=== PATIENT | female | born 1975 | race Caucasian/White ===

== ENCOUNTER 2017-11-04 19:05 | Emergency (ER) | payer MEDICAID ==
[~2017-11-04] VITALS: Ht 160 cm; Wt 70.0 kg
[2017-11-04 19:14] VITALS: BP 142/95; PULSE 83; RESP 20; TEMP 98.1; O2SAT 99
[2017-11-04] MEDS ORDERED: SODIUM CHLORID 0.9% 500 ML INJ 500 ML IV ONE (19:15)
[2017-11-04] MEDS ORDERED: ONDANSETRON HCL 4 MG/2 ML VIAL IV PUSH ONE (19:15)
[2017-11-04] MEDS ORDERED: MORPHINE SULFATE 4 MG/ML INJ IV PUSH ONE (19:15)
[2017-11-04] MEDS ORDERED: SODIUM CHLORIDE 0.9% FLUSH 10 ML FLUSH IVF PRN (19:15)
[2017-11-04] MEDS ORDERED: MORPHINE SULFATE 2 MG/ML INJ IV PUSH ONE ×2 (19:15→20:45)
[2017-11-04 19:18] VITALS: BP_SYST 149; BP_SYST 151; BP_DIAS 119; BP_DIAS 92
[2017-11-04 19:19] VITALS: O2SAT 99
[2017-11-04 19:41] LABS: AUTOMATED NEUTROPHIL # 8.6 TH/MM3 (1.8-7.7); BASOPHIL # 0.1 TH/MM3 (0-0.2); BASOPHIL % 0.7 % (0.0-2.0); HEMATOCRIT 34.8 % (35.0-46.0); HEMOGLOBIN 11.6 GM/DL (11.6-15.3); LYMPH % 17.3 % (9.0-44.0); LYMPHOCYTE # 1.9 TH/MM3 (1.0-4.8); MEAN CELL VOLUME 84.9 FL (80.0-100.0); MEAN CORPUSCULAR HEMOGLOBIN 28.4 PG (27.0-34.0); MEAN CORPUSCULAR HGB CONC 33.4 % (32.0-36.0); MEAN PLATELET VOLUME 9.6 FL (7.0-11.0); MONO % 4.6 % (0.0-8.0); MONOCYTE # 0.5 TH/MM3 (0-0.9); NEUT % 77.4 % (16.0-70.0); PLATELET COUNT 253 TH/MM3 (150-450); WHITE BLOOD COUNT 11.2 TH/MM3 (4.0-11.0)
--- NOTE | 2017-11-04 19:43 | RADRPT ---
EXAM DATE/TIME: 11/04/2017 19:20 [facility] COMPARISON: No previous studies available for comparison. INDICATIONS : Chest pain MEDICAL HISTORY : None. SURGICAL HISTORY : None. ENCOUNTER: Initial ACUITY: 1 day PAIN SCORE: 2/10 LOCATION: chest FINDINGS: A single view of the chest demonstrates the lungs to be symmetrically aerated without evidence of mas s, infiltrate or effusion. The cardiomediastinal contours are unremarkable. Osseous structures are intact. CONCLUSION: The lungs are clear. Darío Morrison MD on November 04, 2017 at 19:41 Board Certified Radiologist. This report was verified electronically.
[2017-11-04 19:52] LABS: INTERNATIONAL NORMALIZED RATIO 1.1 RATIO; PROTHROMBIN TIME - PATIENT 10.7 SEC (9.8-11.6)
[2017-11-04 19:55] LABS: D-DIMER 0.78 MG/L FEU (0.00-0.50)
[2017-11-04 19:56] LABS: ALT (GPT) 17 U/L (10-53)
[2017-11-04 20:04] LABS: ALBUMIN 3.3 GM/DL (3.4-5.0); ALKALINE PHOSPHATASE 182 U/L (45-117); AST (GOT) 20 U/L (15-37); BICARBONATE 25.4 MEQ/L (21.0-32.0); BLOOD UREA NITROGEN 8 MG/DL (7-18); CHLORIDE 102 MEQ/L (98-107); CREATININE 1.09 MG/DL (0.50-1.00); GLOMERULAR FILTRATION RATE 56 ML/MIN (>89); GLUCOSE,RANDOM 97 MG/DL (74-106); LIPASE 134 U/L (73-393); SODIUM (NA) 136 MEQ/L (136-145); TOTAL BILIRUBIN ADULT 0.3 MG/DL (0.2-1.0); TOTAL PROTEIN 8.3 GM/DL (6.4-8.2); TROPONIN I LESS THAN 0.02 NG/ML (0.02-0.05)
[2017-11-04] MEDS ORDERED: METH10TA PO (20:12)
[2017-11-04] MEDS ORDERED: SERO100T PO (20:14)
[2017-11-04] MEDS ORDERED: LEVO125T4 PO (20:14)
--- NOTE | 2017-11-04 20:30 | PD ---
HPI Chief Complaint: Chest Pain Time Seen by Provider: 19:08 Travel History International Travel<30 days: No Contact w/Intl Traveler<30days: No Traveled to known affect area: No History of Present Illness HPI The patient is a 41-year-old female who presents emergency department for chest pain. The patient states she was walking earlier today when she developed substernal to left-sided chest pain. The chest pain was described as tightness, radiating to left shoulder, so sutures shortness of breath and mild nausea. She denied any diaphoresis or vomiting. The patient does have a history of hypertension, had a similar episode of chest pain 6 months ago in [place] and stated she had a walking stress test which was unremarkable. The patient denies any history of pulmonary embolism or DVT, did recently fly to the local area from [place] 2-3 weeks ago. She denies any significant swelling to lower extremities. She does have a history of tobacco use, denies any history of diabetes or previous CAD. Symptoms are moderate, she denies any exertional component or pleuritic component. She does have a history of tobacco use, but denies any acute cough or fever. Symptoms are moderate, there are no current alleviating or exacerbating factors. The patient did receive aspirin and nitroglycerin prior to arrival without any alleviation of the patient's symptoms. PFSH Past Medical History Cardiovascular Problems: Yes (htn ) Diabetes: No ?: Not Past Surgical History Hysterectomy: Yes Social History Tobacco Use: Yes Substance Use: No Allergies-Medications (Allergen,Severity, Reaction): Coded Allergies: Penicillins (Verified Allergy, Unknown, 11/04/17) phenytoin (Verified Allergy, Unknown, 11/04/17) pseudoephedrine (Verified Allergy, Unknown, 11/04/17) Reported Meds & Prescriptions Reported Meds & Active Scripts Active Reported Seroquel (Quetiapine Fumarate) 100 Mg Tab 100 Mg PO BID Levothyroxine (Levothyroxine Sodium) 125 Mcg Tab 125 Mcg PO DAILY Methadone (Methadone HCl) 10 Mg Tab 110 Mg PO DAILY Review of Systems Except as stated in HPI: all other systems reviewed are Neg General / Constitutional: No: Fever, Chills HENT: No: Lightheadedness Cardiovascular: Positive: Chest Pain or Discomfort, No: Diaphoresis, Dyspnea on exertion Gastrointestinal: Positive: Nausea, No: Vomiting, Abdominal Pain Musculoskeletal: No: Edema Neurologic: No: Dizziness Physical Exam Narrative GENERAL: Awake, alert, pleasant 41-year-old female who appears her stated age and is in no acute respiratory distress. She does appear slightly anxious. SKIN: Focused skin assessment warm/dry. HEAD: Atraumatic. Normocephalic. EYES: Pupils equal and round. No scleral icterus. No injection or drainage. ENT: No nasal bleeding or discharge. Mucous membranes pink and moist. NECK: Trachea midline. No JVD. CARDIOVASCULAR: Regular rate and rhythm. No murmur appreciated. Heart rate in the 70s. RESPIRATORY: No accessory muscle use. Clear to auscultation. Breath sounds equal bilaterally. GASTROINTESTINAL: Abdomen soft, non-tender, nondistended. No rebound tenderness. MUSCULOSKELETAL: No obvious deformities. No clubbing. No cyanosis. No edema. NEUROLOGICAL: Awake and alert. No obvious cranial nerve deficits. Motor grossly within normal limits. Normal speech. PSYCHIATRIC: Appropriate mood and affect; insight and judgment normal. Data Data Last Documented VS Vital Signs Date Time Temp Pulse Resp B/P (MAP) Pulse Ox O2 Delivery O2 Flow Rate FiO2 11/04/17 19:19 99 Nasal Cannula 2.00 11/04/17 19:19 11/04/17 19:14 98.1 83 20 Orders Orders Electrocardiogram (11/04/17 19:14) Ckmb (Isoenzyme) Profile (11/04/17 19:14) Complete Blood Count With Diff (11/04/17 19:14) Comprehensive Metabolic Panel (11/04/17 19:14) D-Dimer (11/04/17 19:14) Magnesium (Mg) (11/04/17 19:14) Prothrombin Time / Inr (Pt) (11/04/17 19:14) Act Partial Throm Time (Ptt) (11/04/17 19:14) Troponin I (11/04/17 19:14) Lipase (11/04/17 19:14) Chest, Single Ap (11/04/17 19:14) Ecg Monitoring (11/04/17 19:14) Bilateral Bp Monitoring (11/04/17 19:14) Iv Access Insert/Monitor (11/04/17 19:14) Oximetry (11/04/17 19:14) Oxygen Administration (11/04/17 19:14) Morphine Inj (Morphine Inj) (11/04/17 19:15) Sodium Chloride 0.9% Flush (Ns Flush) (11/04/17 19:15) Sodium Chlorid 0.9% 500 Ml Inj (Ns 500 M (11/04/17 19:15) Ondansetron Inj (Zofran Inj) (11/04/17 19:15) Morphine Inj (Morphine Inj) (11/04/17 19:15) Ct Pulmonary Angiogram (11/04/17 20:03) Morphine Inj (Morphine Inj) (11/04/17 20:45) Troponin I (11/04/17 22:20) Iohexol 350 Inj (Omnipaque 350 Inj) (11/04/17 21:04) Labs Laboratory Tests Test 11/04/17 19:20 11/04/17 22:00 White Blood Count 11.2 TH/MM3 Red Blood Count 4.10 MIL/MM3 Hemoglobin 11.6 GM/DL Hematocrit 34.8 % Mean Corpuscular Volume 84.9 FL Mean Corpuscular Hemoglobin 28.4 PG Mean Corpuscular Hemoglobin Concent 33.4 % Red Cell Distribution Width 16.0 % Platelet Count 253 TH/MM3 Mean Platelet Volume 9.6 FL Neutrophils (%) (Auto) 77.4 % Lymphocytes (%) (Auto) 17.3 % Monocytes (%) (Auto) 4.6 % Eosinophils (%) (Auto) 0.0 % Basophils (%) (Auto) 0.7 % Neutrophils # (Auto) 8.6 TH/MM3 Lymphocytes # (Auto) 1.9 TH/MM3 Monocytes # (Auto) 0.5 TH/MM3 Eosinophils # (Auto) 0.0 TH/MM3 Basophils # (Auto) 0.1 TH/MM3 CBC Comment DIFF FINAL Differential Comment Prothrombin Time 10.7 SEC Prothromb Time International Ratio 1.1 RATIO Activated Partial Thromboplast Time 32.9 SEC D-Dimer Quantitative (PE/DVT) 0.78 MG/L FEU Blood Urea Nitrogen 8 MG/DL Creatinine 1.09 MG/DL Random Glucose 97 MG/DL Total Protein 8.3 GM/DL Albumin 3.3 GM/DL Calcium Level 9.0 MG/DL Magnesium Level 2.0 MG/DL Alkaline Phosphatase 182 U/L Aspartate Amino Transf (AST/SGOT) 20 U/L Alanine Aminotransferase (ALT/SGPT) 17 U/L Total Bilirubin 0.3 MG/DL Sodium Level 136 MEQ/L Potassium Level 3.8 MEQ/L Chloride Level 102 MEQ/L Carbon Dioxide Level 25.4 MEQ/L Anion Gap 9 MEQ/L Estimat Glomerular Filtration Rate 56 ML/MIN Total Creatine Kinase 56 U/L Troponin I LESS THAN 0.02 NG/ML LESS THAN 0.02 NG/ML Lipase 134 U/L MDM Medical Decision Making Medical Screen Exam Complete: Yes Emergency Medical Condition: Yes Medical Record Reviewed: Yes Interpretation(s) EKG reveals sinus rhythm with a rate of 74. Nonspecific T wave changes. Last Impressions Chest X-Ray 11/04/171913 Signed Impressions: Service Date/Time: October 19:20 - CONCLUSION: The lungs are clear. Darío Morrison MD Laboratory Tests Test 11/04/17 19:20 White Blood Count 11.2 TH/MM3 Red Blood Count 4.10 MIL/MM3 Hemoglobin 11.6 GM/DL Hematocrit 34.8 % Mean Corpuscular Volume 84.9 FL Mean Corpuscular Hemoglobin 28.4 PG Mean Corpuscular Hemoglobin Concent 33.4 % Red Cell Distribution Width 16.0 % Platelet Count 253 TH/MM3 Mean Platelet Volume 9.6 FL Neutrophils (%) (Auto) 77.4 % Lymphocytes (%) (Auto) 17.3 % Monocytes (%) (Auto) 4.6 % Eosinophils (%) (Auto) 0.0 % Basophils (%) (Auto) 0.7 % Neutrophils # (Auto) 8.6 TH/MM3 Lymphocytes # (Auto) 1.9 TH/MM3 Monocytes # (Auto) 0.5 TH/MM3 Eosinophils # (Auto) 0.0 TH/MM3 Basophils # (Auto) 0.1 TH/MM3 CBC Comment DIFF FINAL Differential Comment Prothrombin Time 10.7 SEC Prothromb Time International Ratio 1.1 RATIO Activated Partial Thromboplast Time 32.9 SEC D-Dimer Quantitative (PE/DVT) 0.78 MG/L FEU Blood Urea Nitrogen 8 MG/DL Creatinine 1.09 MG/DL Random Glucose 97 MG/DL Total Protein 8.3 GM/DL Albumin 3.3 GM/DL Calcium Level 9.0 MG/DL Magnesium Level 2.0 MG/DL Alkaline Phosphatase 182 U/L Aspartate Amino Transf (AST/SGOT) 20 U/L Alanine Aminotransferase (ALT/SGPT) 17 U/L Total Bilirubin 0.3 MG/DL Sodium Level 136 MEQ/L Potassium Level 3.8 MEQ/L Chloride Level 102 MEQ/L Carbon Dioxide Level 25.4 MEQ/L Anion Gap 9 MEQ/L Estimat Glomerular Filtration Rate 56 ML/MIN Total Creatine Kinase 56 U/L Troponin I LESS THAN 0.02 NG/ML Lipase 134 U/L CT pulmonary angiogram reveals negative for pulmonary embolism. Moderate size hiatal hernia. Second troponin is less than 0.02. Differential Diagnosis Differential diagnosis includes ACS, bronchitis, pneumonia, pleural effusion, pulmonary embolism, pleurisy, GERD, esophageal spasm. Narrative Course IV was established, labs are drawn and sent, and the patient was placed on cardiac telemetry monitoring and continuous pulse oximetry monitoring. EKG was ordered and interpreted. Chest x-ray was obtained. D-dimer was sent to lab, d- dimer was positive. Therefore, CT pulmonary angiogram was ordered. The patient 's initial troponin was negative. CT pulmonary angiogram is negative for pulmonary embolism, does reveal moderate size hiatal hernia. The patient states she had a negative stress test 6 months ago for similar symptoms in [place], states it was negative. Therefore, second troponin was ordered at the 3 hour sanjay. Second troponin is less than 0.02. Patient is medically clear to be evaluated on an outpatient basis. Diagnosis Primary Impression: Atypical chest pain Patient Instructions: General Instructions Additional Instructions: Please provide the patient a copy of her CT results and lab results at discharge. Follow-up with her primary physician. Return if symptoms worsen or progress. Med/Other Pt SpecificInfo: No Change to Meds Disposition: 01 DISCHARGE HOME Condition: Stable Dexter Mark MD Nov 04, 2017 20:30
[2017-11-04] MEDS ORDERED: IOHEXOL 350 MG/ML 10 ML VIAL (for RAD DIAG) IVCONTRAST ONE (21:04)
--- NOTE | 2017-11-04 21:31 | RADRPT ---
EXAM DATE/TIME: 11/04/2017 20:46 [facility] COMPARISON: No previous studies available for comparison. INDICATIONS : Chest pain. IV CONTRAST: 75 cc Omnipaque 350 (iohexol) IV RADIATION DOSE: 9.39 CTDIvol (mGy) MEDICAL HISTORY : Hypertension. SURGICAL HISTORY : Hysterectomy. ENCOUNTER: Initial ACUITY: 2 days PAIN SCALE: 7/10 LOCATION: chest TECHNIQUE: Volumetric scanning of the chest was performed using a pulmonary embolism protocol MIP images were re constructed. Using automated exposure control and adjustment of the mA and/or kV according to patien t size, radiation dose was kept as low as reasonably achievable to obtain optimal diagnostic quality images. DICOM format image data is available electronically for review and comparison. Follow-up recommendations for detected pulmonary nodules are based at a minimum on nodule size and pa tient risk factors according to Fleischner Society Guidelines. FINDINGS: PULMONARY ARTERIES: No filling defects are seen in the pulmonary arteries through the segmental level. LUNGS: No focal abnormality in the visualized lungs. PLEURAE: There is no pleural thickening or pleural effusion. MEDIASTINUM: There is good visualization of the great vessels of the middle mediastinum. No evidence of mediastin al or hilar adenopathy/mass. MISCELLANEOUS: Moderate size hiatus hernia measuring 5.8 cm in width. CONCLUSION: 1. Negative for pulmonary embolism. 2. Moderate size hiatus hernia. Darío Morrison MD on November 04, 2017 at 21:27 Board Certified Radiologist. This report was verified electronically.
--- NOTE | 2017-11-04 23:29 | EKG ---
Date Performed: 11/04/2017 Time Performed: 19:15:42 PTAGE: 41 years EKG: Sinus rhythm NONSPECIFIC T-WAVE ABNORMALITY BORDERLINE ECG NO PREVIOUS TRACING DOCTOR: Zion Hannon Interpretating Date/Time 11/04/2017 23:28:45
== END 2017-11-05 06:12 | disposition home or self-care (01) ==
LOC: NEPE 19:05
DX: R07.89 Other chest pain (principal); K44.9 Diaphragmatic hernia without obstruction or gangrene; M25.512 Pain in left shoulder; R11.0 Nausea; R94.31 Abnormal electrocardiogram [ECG] [EKG]; I10 Essential (primary) hypertension; Z79.899 Other long term (current) drug therapy; Z88.0 Allergy status to penicillin; Z72.0 Tobacco use
CPT/HCPCS: 71010; 71275; 80053; 82550; 83690; 83735; 84484; 85025; 85379; 85610; 85730; 93005; 96361; 96374; 96375; 96376; 99285; J2270; J2405; J7040; Q9967